=== PATIENT | male | born 1995 ===

== ENCOUNTER 2024-07-09 17:23 | Emergency (ER) | payer SELFPAY ==
--- NOTE | ~2024-07-09 | XR_ITS ---
CLINICAL HISTORY: dog bite finger pad 3 view left 2nd digit Comparison: None Findings: No displaced fracture. No dislocations. Soft tissue swelling including 2nd digit. No radiopaque retained foreign body. Superficial bandage opacity noted on the lateral image. IMPRESSION: 1. No acute fracture or dislocation. This document has been electronically signed by: Roni Nelson MD on 07/09/2024 19:06:13
--- NOTE | ~2024-07-09 | XR_ITS ---
CLINICAL HISTORY: dog bite right index finger, palm 3 view right hand Comparison: None Findings: No displaced fractures or dislocations. Soft tissue gas present including 2nd webspace and near 2nd metacarpal phalangeal joint. Soft tissue swelling nonspecific, including 2nd digit. Mild flexion positioning of the 3rd digit. No radiopaque retained foreign body. IMPRESSION: 1. No acute fracture or dislocation. 2. Soft tissue swelling and soft tissue gas. This document has been electronically signed by: Roni Nelson MD on 07/09/2024 19:06:50
[2024-07-09 17:45] VITALS: BP 146/94; PULSE 119; RESP 20; TEMP 37.6; O2SAT 97; BMI 20.5
--- NOTE | 2024-07-09 17:46 | ED.ANIMALBIT ---
HPI - Animal Bite General Chief Complaint: Animal Bite Stated Complaint: right hand; left finger injury dog bite Time Seen by Provider: 07/09/24 18:13 Related Data Previous Rx's ?Medication ?Instructions ?Recorded amoxicillin 875 mg-potassium 1 tab PO BID 5 days #10 tabs 07/09/24 clavulanate 125 mg tablet Allergies Allergy/AdvReac Type Severity Reaction Status Date / Time No Known Allergies Allergy Verified 07/09/24 17:48 [facility] Social History Social History Advance Directives: No Advance Directives Information Provided: Yes Physical Exam ED Vital Signs: Vital Signs - 24 hr 07/09/24 17:45 07/09/24 18:37 07/09/24 18:43 Temperature 99.7 F 98.7 F 98.7 F Pulse Rate 119 H 95 95 Respiratory Rate 20 15 15 Blood Pressure 146/94 H 133/75 133/75 Pulse Oximetry 97 99 99 Oxygen Delivery Method Room Air Room Air Room Air BMI result Body Mass Index 20.5 Course Course Course Narrative: This is a Rapid Medical Examination (RME) performed by Jacob Arellano PA-C in triage. Full HPI, ROS, assessment and treatment plan per primary provider in the Main ED. 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 reports dog jumped out of window on street, patient jumped out of the vehicle to help the dog out of traffic, reports dog bite to b/l hands. He was unsure if his tetanus is up-to-date. PE/vitals: singular puncture wound to web space between right index and 3rd digit. Puncture wounds to ulnar aspect of right palm. Puncture wound to finger pad of left index finger. Plan: xrs, tdap, rabies series Medications Administered Discontinued Medications Generic Name Dose Route Start Last Admin Trade Name Freq PRN Reason Stop Dose Admin Amoxicillin/Clavulanate Potassium 875 mg 07/09/24 18:32 07/09/24 18:41 Amoxicillin/Potassium Clav 875 Mg Tablet PO 07/09/24 18:33 875 mg ONCE ONE Administration Diphtheria/Tetanus/Acell Pertussis 0.5 ml 07/09/24 17:50 07/09/24 18:09 Diphth,Pertus(Acell),Tet Adult 0.5 Ml Syringe IM 07/09/24 17:51 0.5 ml .ONCE ONE Administration Discharge Plan Discharge Clinical Impression: Dog bite Patient Disposition: Home, Self-Care Instructions: Animal Bite (ED) Additional Instructions: DISCHARGE DIAGNOSES: Dog bite low risk for rabies HISTORY OF PRESENTATION: ?Dog bite , with diagnostic medical sonographer. On identified dog or rabies status EMERGENCY DEPARTMENT COURSE,TESTS, TREATMENTS: While in the ED today x-ray did not show any injuries to the bones or retained foreign body or teeth you received a 1st dose of Augmentin antibiotic and a tetanus shot DISCHARGE MEDICATIONS: ?We are starting him on Augmentin FOLLOW-UP: ?Call your primary or general physician soon as possible to discuss your symptoms, your ED visit and to discuss follow up plans Return to the ED if you change your mind about the rabies you can do this over the next several days but as we discuss this is low risk. Take the antibiotics as prescribed. Keep the small puncture wounds covered with a Band-Aid. Generally we keep these wounds open so that if infection develops a can drain. Clean the hand several times per day with soap and water and apply bandage. Take the antibiotics as prescribed INSTRUCTIONS ?& RETURN PRECAUTIONS: If any symptoms change first call your primary physician, if it is after-hours your primary doctors office should have a provider munitions handler supervisor you can speak with. If the symptoms are severe or very concerning to you then call 911 or return to the ED. Get the hand evaluated few developing redness or purulence Yuri Cervantes MD Emergency Physician [facility] Prescriptions: New amoxicillin-pot clavulanate 875-125 mg tablet 1 tab PO BID 5 Days Qty: 10 0RF Interventions: ED Discharge Assessment Last Done: 07/09/24 18:43 Discharge Date/Time: 07/09/24 18:44 Print Language: Citizen Of [place]
[2024-07-09] MEDS: Diphth,Pertus(ACell),Tet Adult 0.5 ML SYRINGE IM (18:09)
--- NOTE | 2024-07-09 18:26 | ED_ITS ---
HPI - Animal Bite General Chief Complaint: Animal Bite Stated Complaint: right hand; left finger injury dog bite Time Seen by Provider: 07/09/24 18:13 History of Present Illness ED Provider: Yuri Cervantes MD HPI narrative: Yuri is a 29-year-old male with no medical history. Just prior to arrival he had sustained superficial bites to the right ulnar aspect palm very superficial, a puncture wound bite wound on the 2nd MCP region and 1 on the 2nd digital pulp left hand. This was dog that had a collar that was owned by someone it had jumped out of the car and was attempting to run around and Yuri try to prevent it from getting injured but in doing such it bit him. Patient received tetanus before evaluated Related Data Previous Rx's ?Medication ?Instructions ?Recorded amoxicillin 875 mg-potassium 1 tab PO BID 5 days #10 tabs 07/09/24 clavulanate 125 mg tablet Allergies Allergy/AdvReac Type Severity Reaction Status Date / Time No Known Allergies Allergy Verified 07/09/24 17:48 [facility] Social History Social History Advance Directives: No Advance Directives Information Provided: Yes Physical Exam ED Vital Signs: Vital Signs - 24 hr 07/09/24 17:45 07/09/24 18:37 07/09/24 18:43 Temperature 99.7 F 98.7 F 98.7 F Pulse Rate 119 H 95 95 Respiratory Rate 20 15 15 Blood Pressure 146/94 H 133/75 133/75 Pulse Oximetry 97 99 99 Oxygen Delivery Method Room Air Room Air Room Air BMI result Body Mass Index 20.5 Const Other: EXAM: Gen: Alert, awake, well appearing, well hydrated. MSK: Small superficial looking puncture wound hemostatic to the right 2nd MCP. Superficial abrasion ulnar aspect of the right palm. Left hand with very superficial puncture wound left distal 2nd digit polyp no active bleeding no foreign body Vital signs: See flowsheet Medications Administered Discontinued Medications Generic Name Dose Route Start Last Admin Trade Name Freq PRN Reason Stop Dose Admin Amoxicillin/Clavulanate Potassium 875 mg 07/09/24 18:32 07/09/24 18:41 Amoxicillin/Potassium Clav 875 Mg Tablet PO 07/09/24 18:33 875 mg ONCE ONE Administration Diphtheria/Tetanus/Acell Pertussis 0.5 ml 07/09/24 17:50 07/09/24 18:09 Diphth,Pertus(Acell),Tet Adult 0.5 Ml Syringe IM 07/09/24 17:51 0.5 ml .ONCE ONE Administration Medical Decision Making Medical Decision Making MDM Narrative: 29-year-old male no significant medical history 2 distinct puncture [facility] Patient and mother who is an emergency nurse here and I had a shared decision- making discussion about rabies post exposure prophylaxis. This is a very low risk injury but we do not have the dog isolated. Patient deferred rabies vaccine series I think this is reasonable. 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 On identified dog or rabies status EMERGENCY DEPARTMENT COURSE,TESTS, TREATMENTS: While in the ED today x-ray did not show any injuries to the bones or retained foreign body or teeth you received a 1st dose of Augmentin antibiotic and a tetanus shot DISCHARGE MEDICATIONS: ?We are starting him on Augmentin FOLLOW-UP: ?Call your primary or general physician soon as possible to discuss your symptoms, your ED visit and to discuss follow up plans Return to the ED if you change your mind about the rabies you can do this over the next several days but as we discuss this is low risk. Take the antibiotics as prescribed. Keep the small puncture wounds covered with a Band-Aid. Generally we keep these wounds open so that if infection develops a can drain. Clean the hand several times per day with soap and water and apply bandage. Take the antibiotics as prescribed INSTRUCTIONS ?& RETURN PRECAUTIONS: If any symptoms change first call your primary physician, if it is after-hours your primary doctors office should have a provider landfill gas collection system operator you can speak with. If the symptoms are severe or very concerning to you then call 911 or return to the ED. Get the hand evaluated few developing redness or purulence Yuri Cervantes MD Emergency Physician [facility] Prescriptions: New amoxicillin-pot clavulanate 875-125 mg tablet 1 tab PO BID 5 Days Qty: 10 0RF Interventions: ED Discharge Assessment Last Done: 07/09/24 18:43 Discharge Date/Time: 07/09/24 18:44 Print Language: [place]
[2024-07-09 18:37] VITALS: BP 133/75; PULSE 95; RESP 15; TEMP 37.1; O2SAT 99
--- OUTSIDE RECORDS SUMMARY | 2024-07-09 18:37 | XMS_ITS | Clinical Summary ---
Author Organization [facility] Address [address] [place] [address] Care Team Providers Care Produce Specialist Name Role Phone Unknown Primary Care Provider [phone] Allergies No known active allergies Medications doxycycline (VIBRAMYCIN) 100 MG capsuleIndicati ons:Urethritis Take 1 capsule (100 mg total) by mouth 2 (two) times a day. 14 capsule 09/13/2022 Active Social History Tobacco Use Types Packs/Day Years Used Date Smoking Tobacco: Never Assessed Sex and Gender Information Value Date Recorded Sex Assigned at Not on file Legal Sex Male 1:09 PM EDT Gender Identity Not on file Sexual Orientation Not on file Last Filed Vital Signs Vital Sign Reading Time Taken Comments Blood Pressure 143/96 09/13/2022 1:17 PM EDT Pulse 96 09/13/2022 1:17 PM EDT Temperature 37.3 ??C (99.1 ??F) 09/13/2022 1:17 PM ED T Respiratory Rate - - Oxygen Saturation 99% 09/13/2022 1:17 PM EDT Inhaled Oxygen Concentration - - Weight 63.5 kg (140 lb) 09/13/2022 1:17 PM EDT Height 180.3 cm (5' 11 ) 09/13/2022 1:17 PM EDT Body Mass Index 19.53 09/13/2022 1:17 PM EDT Plan of Treatment Health Maintenance Due Date Last Done Comments Hepatitis C Virus Screening 1997 HIV Screening 2010 DTaP/Tdap/Td Vaccines (1 - Tdap) 01/26/2016 Hepatitis B Vaccines (1 of 3 - 19+ 3-dose series) 01/26/2016 Influenza Vaccine 10/23/2023 COVID-19 Vaccine ( - 2023-2 5 season) 2023 HPV Vaccines Aged Out No longer eligi ble based on patient's age to complete this topic Pneumococcal Vaccine: Pediat mua (0-5 Years) and At-Risk Patients (6 to 49 Years) Aged Out No longer eligible b ased on patient's age to complete this topic Insurance [facility] Care Teams Produce Specialist Relationship Specialty Start Date End Date Unknown Unknow Provider Address PCP - General 09/13/22
--- OUTSIDE RECORDS SUMMARY | 2024-07-09 18:37 | XMS_ITS | Clinical Summary ---
Author Organization [facility] Address [address] [place] [address] Care Team Providers Care Regulatory Affairs Spec Name Role Phone Madalyn Koroma MD Primary Care Provider [phone] Surgical History Surgery Date Site/Laterality Comments ADENOIDECTOMY 07/2002 PROCEDURE: HISTORICAL ADENOIDECTOMY TONSILLECTOMY 07/2002 PROCEDURE: HISTORICAL TONSILLECTOMY Medical History Medical History Date Comments Unspecified asthma(493.90) DX:Un specified asthma(493.90) Family History Medical History Relation Name Comments Asthma Other 1 MATERNAL SIDE Allergies Other 2 MATERNAL & BROWNE RNAL SIDE Relation Name Status Comments Brother Alive Father Alive Mother Alive Other 1 Other 2 Social History Tobacco Use Types Packs/Day Years Used Date Smoking Tobacco: Never Smokeless Tobacco: Never Alcohol Use Standard Drinks/Week Comments No 0 (1 standard drink = 0.6 oz pur e alcohol) Sex and Gender Information Value Date Recorded Sex Assigned at Not on file Legal Sex Male 9:34 AM EST Gender Identity Not on file Sexual Orientation Not on file Obstetrics History Last Filed Vital Signs Vital Sign Reading Time Taken Comments Blood Pressure 144/88 04/05/2022 4:53 PM EST Pulse 76 04/05/2022 4:28 PM EST Temperature - - Respiratory Rate - - Oxygen Saturation - - Inhaled Oxygen Concentration - - Weight 63 kg (139 lb) 04/05/2022 4:28 PM EST Height 180.3 cm (5' 11 ) 04/05/2022 4:28 PM EST Body Mass Index 19.39 04/05/2022 4:28 PM EST Plan of Treatment Health Maintenance Due Date Last Done Comments Pneumococcal Vaccine: Pediatrics (0 to 5 Years) and At-Risk Patients (6 to 64 Years) (1 of 2 - PCV) 01/26/2016 HPV Vaccines (2 - Male 3-dose series) 05/30/2017 05/02/2017 DTaP,Tdap,and Td Vaccines (7 - Td or Tdap) 12/20/2019 12/19/2009, 02/25/2001, 06/05/1998, Additional history exists Depression Screening 02/24/2022 HIV Screening 02/24/2022 Hepatitis C Screening 02/24/2022 Social Influencers of Health Screening 02/24/2022 COVID-19 Vaccine ( season) 2023 Influenza Vaccine (Season Ended) 2024 12/19/2009, 02/21/2009, 01/02/2005 Hepatitis B Vaccines Completed 1997, 1997, 1997 HIB Vaccines Completed 06/05/1998, 07/22, 1997, Additional history exists IPV Vaccines Completed 02/25/2001, 05/22, 1997, Additional history exists MMR Vaccines Completed 02/25/2001, 01/27/1998 Meningococcal ACWY Vaccine Aged Out 12/19/2009 N o longer eligible based on patient's age to complete this topic Varicella Vaccines Completed 12/19/2009, 01/27/1998 Hepatitis A Vaccines Aged Out No long er eligible based on patient's age to complete this topic Meningococcal B Vaccine Aged Out No l onger eligible based on patient's age to complete this topic RSV Immunization Patients Under 20 months Aged Out No longer eligible based on patient's age to complete this topic Care Teams Regulatory Affairs Spec Relationship Specialty Start Date End Date Madalyn Koroma MD PCP - General 04/05/22
[2024-07-09] MEDS: Amoxicillin/Potassium Clav 875 MG TABLET PO (18:41)
[2024-07-09 18:43] VITALS: BP 133/75; PULSE 95; RESP 15; TEMP 37.1; O2SAT 99
== END 2024-07-09 18:44 | disposition home or self-care (01) ==
PROVIDERS: Emergency Provider Emergency Medicine
DX: S61.251A Open bite of left index finger without damage to nail, initial encounter (principal); M79.642 Pain in left hand; S61.452A Open bite of left hand, initial encounter; W54.0XXA Bitten by dog, initial encounter; Y93.9 Activity, unspecified; Y92.9 Unspecified place or not applicable; Y99.8 Other external cause status; Z23 Encounter for immunization
CPT/HCPCS: 73130; 73140; 90471; 90715; 99282; 99284

== ENCOUNTER → 2024-07-09 17:50 | Outpatient (BNV) | payer SELFPAY | PROVIDERS: Emergency Provider Emergency Medicine; Visit Provider Radiology Neuroradiology | DX: S61.451A Open bite of right hand, initial encounter (principal); S61.250A Open bite of right index finger without damage to nail, initial encounter | CPT/HCPCS: 73130; 73140 ==